=== PATIENT | female | born 1935 | race African-American/Black ===

== ENCOUNTER → 2018-09-02 | Day surgery (SDC) | payer MEDICARE ==
[2018-08-30 11:19] LABS: BASOPHILS % 0.2 % (0.0-1.0); EOSINOPHILS # (AUTO) 0.1 (0.0-0.4); EOSINOPHILS % 3.4 % (0.0-6.0); HEMATOCRIT 35.2 % (34.2-44.1); HEMOGLOBIN 10.7 g/dL (12.0-16.0); LYMPHOCYTES # (AUTO) 1.7 (1.0-3.2); LYMPHOCYTES % 40.8 % (18.0-39.1); MEAN CORPUSCULAR HEMOGLOBIN 27.8 pg (28-32); MEAN CORPUSCULAR HGB CONC 30.4 g/dL (31-35); MEAN CORPUSCULAR VOLUME 91.4 fL (81-99); MONOCYTES # (AUTO) 0.4 (0.2-0.8); MONOCYTES % 9.9 % (4.4-11.3); NEUTROPHILS # (AUTO) 1.9 (2.1-6.9); NEUTROPHILS % 45.7 % (38.7-80.0); PLATELET COUNT 187 x10e3/uL (140-360); RED BLOOD COUNT 3.85 x10e6/uL (3.6-5.1); RED CELL DISTRIBUTION WIDTH 18.7 % (11.7-14.4)
--- NOTE | 2018-08-30 11:58 | Diagnostic Imaging Report ---
EXAM: XR CHEST 2 VIEWS DATE: 08/30/2018 10:48 AM INDICATION: Preoperative for carpal tunnel surgery COMPARISON: None FINDINGS: Lines and Tubes: None Heart and Mediastinum: The heart is not enlarged. Increased right paratracheal soft tissue densities statistically can fluid vascular structures. Lungs and Pleura: No significant pleural effusion, pneumothorax, or focal consolidation. Bones and Soft Tissues: Degenerative changes shoulders. Degenerative changes spine. IMPRESSION: 1. No definite acute findings. 2. Probable confluence of vascular structures account for soft tissue density in the right paratracheal region. Chest x-ray follow-up recommended. Signed by: Dr. Dav Pena MD on 08/30/2018 11:55 AM
[~2018-09-02] MED LIST: AMLODIPINE BESY10 MG PO; BUPIVACAINE HCL 0.5% INJ 30 ML VIAL INJ ONE; CEFAZOLIN SOD 1 GM VIAL ONE; DEXAMETHASONE SOD PHOS INJ 4 MG/ML VIAL ONE; FENTANYL CITRATE/PF 100MCG/2 ML INJ ONE; FERROUS SULFAT325 MG; IBUPROFEN400 MG PO; LEVOTHYROXINE75 MCG PO; LIDOCAINE HCL 2% LOCAL INJ 5 ML SDV VIAL INJ ONE; MUPIROCIN 2% OINT 22 GM TUBE ONE; ONDANSETRON HCL INJ 2 MG/ML VIAL ONE; PROPOFOL IV EMULSION 10 MG/ML 20 ML VIAL ONE; SEVOFLURANE INHAL SOLN 250 ML PEN BTL ONE; SIMVASTATIN20 MG PO
--- OUTSIDE RECORDS SUMMARY | 2018-09-02 05:37 | XMS REPORT | Clinical Summary ---
Author Author MAURICE [facility] Address Unknown Phone Unavailable Care Team Providers Care Revenue Cycle Manager Name Role Phone DebbieAshia rodriguez PCP Unavailable Allergies Comments Active Allergy Reactions Severity Noted Date hallucinations Propoxyphene Other (See 10/17/2014 Comments) Iodine And Iodide Anaphylaxis High 10/17/2014 Containing Products Medications End Date Status Medication Sig Dispensed Refills Start Date Active amLODIPine (NORVASC) 10 Take 10 mg by 0 MG tablet mouth daily. Active loratadine (CLARITIN) 10 Take 10 mg by 0 mg tablet mouth daily. Active simvastatin (ZOCOR) 20 MG Take 20 mg by 0 tablet mouth nightly. Active levothyroxine 125 mcg Cap Take by 0 mouth. Active iron Take 1 tablet 0 [id number] by mouth 150 mg iron-200 mg-250 daily. mcg tablet Active ibuprofen (ADVIL,MOTRIN) Take 400 mg 0 400 MG tablet by mouth every 6 (six) hours as needed for Pain. Active meclizine (ANTIVERT) 25 Take 1 tablet 25 tablet 0 201 mg tablet (25 mg total) 8 by mouth 3 (three) times daily as needed. 09/16/2017 Discontinued azithromycin (ZITHROMAX) Take 250 mg 0 250 MG tablet by mouth daily Take by mouth as directed. . 11/06/2017 ondansetron (ZOFRAN) 4 MG Take 1 tablet 16 tablet 0 201 tablet (4 mg total) 8 by mouth every 6 (six) hours for 7 days. Active Problems Problem Noted Date Enterocolitis 09/11/2017 Encounters Care Team Description Date Type Specialty VuSergio MD Vertigo (Primary Dx) 10/30/2017 Emergency Emergency Medicine 10/30/2017 Orders Only General Internal Medicine Guero Ponce MD Ahmed, Shamoon, MD Enterocolitis (Primary Dx); Vomiting and diarrhea 09/11/2017 [facility] General Internal Medicine - Encounter 09/16/2017 09/11/2017 Orders Only General Internal Medicine after 09/01/2017 Social History Date Tobacco Use Types Packs/Day Years Used Never Smoker Smokeless Tobacco: Never Used Alcohol Use Drinks/Week oz/Week Comments No Sex Assigned at Date Recorded Not on file Industry Job Start Date Occupation Not on file Not on file Not on file Travel End Travel History Travel Start No recent travel history available. Last Filed Vital Signs Time Taken Vital Sign Reading 10/30/2017 11:30 AM [employer] Blood Pressure 186/86 10/30/2017 11:30 AM [employer] Pulse 62 10/30/2017 10:00 AM [employer] Temperature 36.4 C (97.5 F) 10/30/2017 11:30 AM [employer] Respiratory Rate 20 10/30/2017 11:30 AM [employer] Oxygen Saturation 100% - Inhaled Oxygen - Concentration 10/30/2017 10:00 AM [employer] Weight 90.7 kg (200 lb) 09/11/2017 6:58 PM [employer] Height 160 cm (5' 3") 10/30/2017 10:00 AM [employer] Body Mass Index 35.43 Plan of Treatment Not on file Procedures Comments Procedure Name Priority Date/Time Associated Diagnosis ED ECG INTERPRETATION Routine 10/30/2017 1:57 PM [employer] CT BRAIN WITHOUT IV STAT 10/30/2017 CONTRAST 10:38 AM [employer] CBC W/PLT COUNT & AUTO STAT 10/30/2017 DIFFERENTIAL 10:22 AM [employer] CBC W/PLT COUNT & AUTO STAT 10/30/2017 DIFFERENTIAL 10:22 AM [employer] DRIVER BASIC METABOLIC PANEL (7) STAT 10/30/2017 10:22 AM [employer] ECG 12-LEAD Routine 10/30/2017 10:16 AM [employer] DRIVER Procedure Note - Interface, External Ris In - 10/30/2017 9:54 PM [employer] Ventricula r Rate 61 BPM Atrial Rate 61 BPM P-R Interval 148 ms QRS Duration 88 ms Q-T Interval 404 ms QTC Calculatio n(Bazett) 406 ms P Mayview 41 degrees R [place]view 32 degrees T [place]view 63 degrees Normal sinus rhythm Nonspecifi c T wave abnormalit y Abnormal ECG When compared with ECG of 7 03:59, Nonspecifi c T wave abnormalit y no longer evident in Inferior leads Nonspecifi c T wave abnormalit y no longer evident in Anterior leads ECG 12-LEAD STAT 10/30/2017 10:16 AM [employer] CBC W/PLT COUNT & AUTO Routine 09/16/2017 DIFFERENTIAL 5:14 AM [employer] CBC W/PLT COUNT & AUTO Routine 09/16/2017 DIFFERENTIAL 5:14 AM [employer] BASIC METABOLIC PANEL (7) Routine 09/16/2017 5:14 AM [employer] DRIVER (MANUAL DIFFERENTIAL) Routine 09/15/2017 5:22 AM [employer] CBC W/PLT COUNT & AUTO Routine 09/15/2017 DIFFERENTIAL 5:22 AM [employer] DRIVER CBC W/PLT COUNT & AUTO Routine 09/15/2017 DIFFERENTIAL 5:22 AM [employer] DRIVER BASIC METABOLIC PANEL (7) Routine 09/15/2017 5:22 AM [employer] DRIVER (MANUAL DIFFERENTIAL) Routine 09/14/2017 4:46 AM [employer] CBC W/PLT COUNT & AUTO Routine 09/14/2017 DIFFERENTIAL 4:46 AM [employer] DRIVER CBC W/PLT COUNT & AUTO Routine 09/14/2017 DIFFERENTIAL 4:46 AM [employer] DRIVER BASIC METABOLIC PANEL (7) Routine 09/14/2017 4:46 AM [employer]IVER CBC W/PLT COUNT & AUTO Routine 09/13/2017 DIFFERENTIAL 5:39 AM [employer] DRIVER CBC W/PLT COUNT & AUTO Routine 09/13/2017 DIFFERENTIAL 5:39 AM [employer] DRIVER BASIC METABOLIC PANEL (7) Routine 09/13/2017 5:39 AM [employer] DRIVER CBC W/PLT COUNT & AUTO Routine 09/12/2017 DIFFERENTIAL 5:06 AM [employer] CBC W/PLT COUNT & AUTO Routine 09/12/2017 DIFFERENTIAL 5:06 AM [employer] DRIVER BASIC METABOLIC PANEL (7) Routine 09/12/2017 5:06 AM [employer] DRIVER STOOL PATH CHARGE Routine 09/11/2017 11:09 AM [employer] DRIVER URINALYSIS W/ MICROSCOPIC STAT 09/11/2017 11:09 AM [employer] DRIVER SHIGA TOXIN SCREEN Routine 09/11/2017 11:09 AM [employer] DRIVER OVA AND PARASITE STAT 09/11/2017 EXAMINATION 11:09 AM [employer] M[employer] TR[employer] DRIVER CLOSTRIDIUM DIFFICILE STAT 09/11/2017 TOXIN PCR 11:09 AM [employer] M[employer] TR[employer] DRIVER STOOL CULTURE + SHIGA STAT 09/11/2017 TOXIN 11:09 AM [employer] DRIVER ED ECG INTERPRETATION Routine 09/11/2017 7:32 AM [employer] [address] CT ABDOMEN/PELVIS WITHOUT STAT 09/11/2017 IV CONTRAST 6:21 AM [employer] ECG 12-LEAD Routine 09/11/2017 3:59 AM [employer] DRIVER Procedure Note - Interface, External Ris In - 09/11/2017 1:41 PM [employer] Ventricula r Rate 68 BPM Atrial Rate 68 BPM P-R Interval 158 ms QRS Duration 88 ms Q-T Interval 410 ms QTC Calculatio n(Bazett) 435 ms P Mayview 58 degrees R Mayview 41 degrees T [place]view 104 degrees Normal sinus rhythm Nonspecifi c T wave abnormalit y Abnormal ECG When compared with ECG of 7 12:39, Nonspecifi c T wave abnormalit y now evident in Inferior leads Nonspecifi c T wave abnormalit y now evident in Anterior leads ECG 12-LEAD STAT 09/11/2017 3:59 AM [employer]IVER CBC W/PLT COUNT & AUTO STAT 09/11/2017 DIFFERENTIAL 3:29 AM [employer]IVER CBC W/PLT COUNT & AUTO STAT 09/11/2017 DIFFERENTIAL 3:29 AM [employer] DRIVER LIPASE STAT 09/11/2017 3:29 AM [employer] DRIVER AMYLASE STAT 09/11/2017 3:29 AM [employer] DRIVER HEPATIC FUNCTION PANEL STAT 09/11/2017 3:29 AM [employer] DRIVER BASIC METABOLIC PANEL (7) STAT 09/11/2017 3:29 AM [employer] DRIVER after 09/01/2017 Results * ED ECG Interpretation (10/30/2017 1:57 PM [employer]IVER) Only the most recent of 2 results within the time period is included. Narrative Performed At Sergio Sandoval MD 10/30/20171:57 PM ECG/EKG Interpretation Date/Time: 10/30/2017 10:33 AM Performed by: SERGIO SANDOVAL Authorized by: SERGIO SANDOVAL The ECG was interpreted by ED physician. This ECG was not compared with previous ECG(s).The ECG is interpreted as sinus rhythm. Rate is normal rate. Conduction: conduction normal. ST segments normal. T waves abnormal. [place]view is normal. Other findings: no other findings. Clinical Impression: non-specific ECG * CT brain without IV contrast (10/30/2017 10:38 AM [employer] DRIVER) Narrative Performed At FINAL REPORT [facility] CT head without contrast. Comparisons: May 13, 2015 Reason for exam: Dizziness. Discussion: Multiple axial CT images of the head are provided without contrast evaluated in brain and bone windows. Dose modulation, iterative reconstruction, and/or weight based adjustment of the mA/kV was utilized to reduce the radiation dose to as low as reasonably achievable. There is no CT evidence of intracranial hemorrhage, mass-effect, hydrocephalus, shift, or extra-axial collections.Microvascular changes are present. The visualized dural sinus regions, orbital contents, paranasal sinuses, bones and surrounding soft tissues are unremarkable. Impressions: 1. No specific evidence of acute intracranial abnormality. Signed: Teresa Saucedo MD Report Verified Date/Time:10/30/2017 11:23:39 Reading Location: [facility] C0[facility] Neuro Reading Room Procedure Note Interface, External Ris In - 10/30/2017 11:25 AM [employer] TR[employer] DRIVER FINAL REPORT CT head without contrast. Comparisons: May 13, 2015 Reason for exam: Dizziness. Discussion: Multiple axial CT images of the head are provided without contrast evaluated in brain and bone windows. Dose modulation, iterative reconstruction, and/or weight based adjustment of the mA/kV was utilized to reduce the radiation dose to as low as reasonably achievable. There is no CT evidence of intracranial hemorrhage, mass-effect, hydrocephalus, shift, or extra-axial collections. Microvascular changes are present. The visualized dural sinus regions, orbital contents, paranasal sinuses, bones and surrounding soft tissues are unremarkable. Impressions: 1. No specific evidence of acute intracranial abnormality. Signed: Teresa Saucedo MD Report Verified Date/Time: 10/30/2017 11:23:39 Reading Location: [facility] C0[facility] Neuro Reading Room Performing Organization Address City/State/Zipcode Phone Number GE RIS * CBC with platelet count + automated diff (10/30/2017 10:22 AM [employer] DRIVER) Only the most recent of 7 results within the time period is included. WBC 4.2 4.0 - 10.0 10e3/L , [facility] RBC 4.39 4.00 - 5.00 10e6/L , [facility] Hemoglobin 11.2 (L) 12.0 - 15.0 g/dL [facility] Hematocrit 35.1 (L) 36.0 - 45.0 % [facility] MCV 80.1 (L) 82.0 - 99.0 fL [facility] MCH 25.6 (L) 27.0 - 33.0 pg [facility] MCHC 32.0 32.0 - 36.0 g/dL [facility] RDW 18.8 (H) 10.3 - 14.2 % [facility] Platelets 214 150 - 430 10e3/L [facility] MPV 10.0 6.5 - 10.5 fL [facility] % Neutros 58 % [facility] % Lymphs 30 % [facility] % Monos 9 % [facility] % Eos 2 % [facility] % Baso 1 % [facility] # Neutros 2.41 1.80 - 8.00 10e3/L [facility] # Lymphs 1.26 (L) 1.48 - 4.50 10e3/L [facility] # Monos 0.38 0.00 - 1.30 10e3/L [facility] # Eos 0.09 0.00 - 0.50 10e3/L [facility] # Baso 0.02 0.00 - 0.20 10e3/L , [facility] Specimen Blood Performing Organization Address City/State/Zipcode Phone Number MAURICE DOW[address]ING [address] [place] [address] [facility], [facility] * Basic metabolic panel (Na, K+, Cl, CO2, Glu, Ca, BUN, Cr) (10/30/2017 10:22 AM [employer] M[employer] TR[employer] DRIVER) Only the most recent of 7 results within the time period is included. Sodium 147 135 - 148 meq/L [facility] Potassium 4.4 3.6 - 5.5 meq/L [facility] Chloride 103 98 - 106 meq/L [facility] CO2 29 24 - 32 meq/L [facility] BUN 12 10 - 26 mg/dL [facility] Creatinine 0.93 0.50 - 1.20 mg/dL [facility] Glucose 125 (H) 70 - 110 mg/dL [facility] Calcium 9.0 8.5 - 10.5 mg/dL [facility] EGFR 70Comment: ESTIMATED GFR IS mL/min/1.73 sq m [facility] NOT ACCURATE CREATININE [facility] CLEARANCE IN [facility] GLOMERULAR FILTRATION RATE. EMERGENCY CENTER, ESTIMATED GFR IS NOT [facility] APPLICABLE FOR DIALYSIS PATIENTS. Specimen Blood Performing Organization Address City/State/Zipcode Phone Number [facility] [address] [place] [address] [facility] * ECG 12 lead (10/30/2017 10:16 AM [employer] M[employer] TR[employer] DRIVER) Only the most recent of 2 results within the time period is included. Narrative Performed At Ventricular Rate 61 BPM GE MUSE Atrial Rate 61 BPM P-R Interval 148 ms QRS Duration 88 ms Q-T Interval 404 ms QTC Calculation(Bazett) 406 ms P Mayview 41 degrees R Mayview 32 degrees T Mayview 63 degrees Normal sinus rhythm Normal ECG When compared with ECG of 11-SEP-2017 03:59, Nonspecific T wave abnormality no longer evident in Inferior leads Nonspecific T wave abnormality no longer evident in Anterior leads Confirmed by MD ZHENG YOCHAI ([id number]) on 10/31/2017 2:39:06 PM Procedure Note Interface, External Ris In - 10/31/2017 2:39 PM [employer] DRIVER Ventricular Rate 61 BPM Atrial Rate 61 BPM P-R Interval 148 ms QRS Duration 88 ms Q-T Interval 404 ms QTC Calculation(Bazett) 406 ms P Mayview 41 degrees R Mayview 32 degrees T Mayview 63 degrees Normal sinus rhythm Normal ECG When compared with ECG of 11-SEP-2017 03:59, Nonspecific T wave abnormality no longer evident in Inferior leads Nonspecific T wave abnormality no longer evident in Anterior leads Confirmed by MD ZHENG YOCHAI ([id number]) on 10/31/2017 2:39:06 PM Performing Organization Address City/[facility] Phone Number GE MUSE * Manual Differential (09/15/2017 5:22 AM [employer] M[employer] TR[employer] DRIVER) Only the most recent of 2 results within the time period is included. Total Counted [facility] WBC Morphology Normal [facility] RBC Morphology Normal [facility] Large Platelet Present [facility] Specimen Blood Performing Organization Address [facility] Phone Number [address] [address] [facility] * STOOL PATH CHARGE (09/11/2017 11:09 AM READ[employer] M[employer] TRUCK DRIVER) Pathogen exam charged Done [facility] Specimen Stool - Stool Performing Organization Address [facility] Phone Number [address] [address] [facility] * Shiga Toxin Screen (09/11/2017 11:09 AM READ[employer] M[employer] TR[employer] DRIVER) Shiga toxin 1 Not detected Not detected [facility] Shiga toxin 2 Not detected Not detected [facility] Specimen Stool - Stool Performing Organization Address [facility] Phone Number [address] [address] [phone] [place] [address] * Clostridium difficile Toxin PCR (09/11/2017 11:09 AM READ[employer] M[employer] TRUCK DRIVER) C.Diff Toxin, PCR Not Detected Not Detected [facility] Specimen Stool - Urine, Clean Catch Narrative Performed At This qualitative real-time polymerase chain reaction assay detects the tcdB [facility] gene, encoded on the C.difficile pathogenicity locus (PaLoc).The product of [facility] tcdB, toxin B, is a cytotoxin essential for causing C.difficile-associated disease (CDAD) and is found in virtually all toxigenic C.difficile. This assay is performed for patients suspected of having either community-acquired or nosocomial CDAD.Accordingly, only symptomatic patients should be tested and formed stools will be rejected unless ileus is present (i.e., specified when ordering).Patients may be colonized with toxigenic C.difficile strains not causing active disease; therefore, clinical correlation is needed when deciding how to manage patients with a positive test result. The assay has not been validated as a test of cure as amplifiable nucleic acid may persist after effective treatment; therefore, follow-up testing of a positive result is not recommended. Performing Organization Address City/State/Zipcode Phone Number [address] * Ova and Parasite Examination (09/11/2017 11:09 AM READ[employer] M[employer] TRUCK DRIVER) Specimen Stool Narrative Performed At [facility] See scanned results. [facility] Performing Organization Address City/State/Zipcode Phone Number [address] * Urinalysis w/ Microscopic (09/11/2017 11:09 AM READY M[employer] TRUCK DRIVER) Color, UA Yellow [facility] Clarity, UA Clear [facility] Specific Elsa, UA 1.012 1.001 - 1.035 [facility] pH, UA 5.5 5.0 - 8.0 [facility] Protein, UA Negative Negative [facility] Glucose, UA Negative Negative [facility] Ketones, UA Negative Negative [facility] Bilirubin, UA Negative Negative [facility] Blood, UA Negative Negative [facility] Nitrite, UA Negative Negative [facility] Leukocytes, UA Negative Negative [facility] Urobilinogen, UA 0.2 0.2 - 1.0 mg/dL [facility] RBC, UA <1 /HPF [facility] WBC, UA 1 /HPF [facility] Bacteria, UA Rare [facility] Mucus Rare [facility] Squam Epithel, UA <1 /HPF [facility] Casts 1 /LPF [facility] Specimen Source Urine, Clean Catch [facility] Specimen Urine - Urine, Clean Catch Performing Organization Address City/State/Zipcode Phone Number [facility] [address] [place] [address] [phone] [place] [address] * Stool culture + Shiga toxin+Salmonella+Campylobacter (09/11/2017 11:09 AM READY M[employer] TRUCK DRIVER) Result No Salmonella, Shigella or [facility] Campylobacter isolated [facility] Specimen Stool - Stool Performing Organization Address City/[facility] Phone Number [facility] [address] [place] [address] [phone] [place] [address] * CT abdomen pelvis without contrast (09/11/2017 6:21 AM READY M[employer] TRUCK DRIVER) Narrative Performed At FINAL REPORT [facility] CT, ABDOMEN \\T\\ PELVIS, WITHOUT IV CONTRAST INDICATION: Abdominal pain, unspecified ABDOMINAL PAIN COMPARISON: February 16, 2013 TECHNIQUE: CT of the abdomen and pelvis WITHOUT intravenous contrast. DOSE REDUCTION: Dose modulation, iterative reconstruction, and/or weight-based adjustment of the mA/kV was utilized to reduce the radiation dose to as low as reasonably achievable. FINDINGS: NOTE:Absence of intravenous contrast decreases sensitivity for focal lesions and vascular pathology. Lower thorax: Unremarkable Liver: No parenchymal abnormality. Gallbladder and biliary tree: No ductal dilation or stones. Pancreas: No acute findings. Spleen: No acute findings Adrenal Glands: No acute findings. Kidneys and ureters: Left pelviectasis. No obstructing stone. Bladder and reproductive organs: Unremarkable. Stomach and Duodenum: Small sliding hiatal hernia. Small and large intestine: Normal calibers. Distal colonic diverticular disease. No associated inflammatory signs. Fluid content throughout the small and large bowel. There is no pneumatosis. Appendix: The appendix is not identified. No pericecal inflammatory changes are present. Major vascular structures: Normal aortic caliber. Calcific atherosclerosis extending into the major branches. Peritoneum and retroperitoneum: No free air, fluid or adenopathy. Skeleton: No acute bony abnormality. Additional findings: None. IMPRESSION: Limited noncontrast evaluation revealing no bowel obstruction. Fluid content throughout the large and small bowel may reflect infectious/inflammatory enterocolitis. No pneumatosis. Signed: JR Powers Robert MD Report Verified Date/Time:09/11/2017 06:26:10 Reading Location: [facility] C013Y CT Body Reading Room Procedure Note Interface, External Ris In - 09/11/2017 6:28 AM READY M[employer] TRUCK DRIVER FINAL REPORT CT, ABDOMEN \\T\\ PELVIS, WITHOUT IV CONTRAST INDICATION: Abdominal pain, unspecified ABDOMINAL PAIN COMPARISON: February 16, 2013 TECHNIQUE: CT of the abdomen and pelvis WITHOUT intravenous contrast. DOSE REDUCTION: Dose modulation, iterative reconstruction, and/or weight-based adjustment of the mA/kV was utilized to reduce the radiation dose to as low as reasonably achievable. FINDINGS: NOTE: Absence of intravenous contrast decreases sensitivity for focal lesions and vascular pathology. Lower thorax: Unremarkable Liver: No parenchymal abnormality. Gallbladder and biliary tree: No ductal dilation or stones. Pancreas: No acute findings. Spleen: No acute findings Adrenal Glands: No acute findings. Kidneys and ureters: Left pelviectasis. No obstructing stone. Bladder and reproductive organs: Unremarkable. Stomach and Duodenum: Small sliding hiatal hernia. Small and large intestine: Normal calibers. Distal colonic diverticular disease. No associated inflammatory signs. Fluid content throughout the small and large bowel. There is no pneumatosis. Appendix: The appendix is not identified. No pericecal inflammatory changes are present. Major vascular structures: Normal aortic caliber. Calcific atherosclerosis extending into the major branches. Peritoneum and retroperitoneum: No free air, fluid or adenopathy. Skeleton: No acute bony abnormality. Additional findings: None. IMPRESSION: Limited noncontrast evaluation revealing no bowel obstruction. Fluid content throughout the large and small bowel may reflect infectious/inflammatory enterocolitis. No pneumatosis. Signed: JR Gio, Gina GRIGGS Report Verified Date/Time: 09/11/2017 06:26:10 Reading Location: [facility] B1 C[address] Body Reading Room Performing Organization Address City/[facility]/Zipcode Phone Number RIS * Lipase (09/11/2017 3:29 AM READ[employer] M[employer] TRUCK DRIVER) Lipase 13 8 - 78 U/L [facility] Specimen Blood Performing Organization Address [facility] Phone Number [address] * Amylase (09/11/2017 3:29 AM READ[employer] M[employer] TRUCK DRIVER) Amylase 137 (H) 25 - 125 U/L [facility] Specimen Blood Performing Organization Address [facility] Phone Number [address] * Hepatic function panel (09/11/2017 3:29 AM READY M[employer] TRUCK DRIVER) Protein, Total 8.1 6.0 - 8.3 gm/dL [facility] Albumin 3.6 3.5 - 5.0 g/dL [facility] Total Bilirubin 0.4 0.2 - 1.2 mg/dL [facility] Bilirubin, Direct 0.2 0.1 - 0.5 mg/dL [facility] Alkaline Phosphatase 94 40 - 150 U/L [facility] AST 17 5 - 34 U/L [facility] ALT 10 6 - 55 U/L [facility] Specimen Blood Performing Organization Address City/State/Zipcode Phone Number [facility] [address] [place] [address] [facility] after 09/01/2017 Insurance Payer Benefit Subscriber ID Type Phone Address Plan / Group HUMANA - MEDICARE MGD HUMANA xxxxxxxxx [facility] MEDICARE Contracted ADV MCR SUPPLEMENT/INDIVIDUAL AARP/UNITE xxxxxxxxxxx [employer] HEALTHCARE Advance Directives For more information, please contact: [facility] [address] [place] [address] Date Inactivated Comments Code Status Date Activated 09/16/2017 6:40 PM Full Code 09/11/2017 9:28 AM This code status was determined by: Patient
--- OUTSIDE RECORDS SUMMARY | 2018-09-02 05:38 | XMS REPORT ---
[facility] Address Unknown Phone Unavailable Care Team Providers Care Demographer Name Role Phone APRIL DANG Unavailable Unavailable Nancy SANDOVAL Unavailable [facility]available [facility] Unavailable Unavailable ANGELO GARNER Unavailable Unavailable Problems This patient has no known problems. Allergies, Adverse Reactions, Alerts This patient has no known allergies or adverse reactions. Medications This patient has no known medications. Results Test Description Test Time Test Comments Text Results Atomic Results Result Comments CHEST 2 VIEWS 2018-08-30 11:54:00 [place] [address] Patient Name: CHEYENNE RAMOS MR #: [id number] : 1935 Age/Sex: 83/F Req #: [id number] Adm Physician: Ordered by: APRIL DANG MD Report #: [id number] Location: OR Room/Bed: Procedure: [id number] DX/CHEST 2 VIEWS Exam Date: 08/30/18 Exam Time: 1133 REPORT STATUS: Signed EXAM: XR CHEST 2 VIEWS DATE: 08/30/2018 10:48 AM IN DICATION: Preoperative for carpal tunnel surgery COMPARISON: None FINDINGS: Lines and Tubes: None Heart and Mediastinum: The heart is not enlarged. Increased right paratracheal soft tissue densities statistically can fluid vascular structures. Lungs and Pleura: No significant pleural effusion, pneumothorax, or focal consolidation. Bones and Soft Tissues: Degenerative changes shoulders. Degenerative changes spine. IMPRESSION: 1. No definite acute findings. 2. Probable confluence of vascular structures account for soft tissue density in the right paratracheal region. Chest x-ray follow-up recommended. Signed by: Dr. Dav Pena MD on 08/30/2018 11:55 AM Dictated By: DAV PENA MD 1155 Transcribed By: JAREN on 08/30/18 1155 COPY TO: APRIL DANG MD CT, BRAIN, WITHOUT CONTRAST 2017-10-30 11:23:[address] head without contrast. Comparisons: [...] evidence of acute intracranial abnormality. Signed: Teresa Bro Verified Da te/Time: 10/30/2017 11:23:39 Reading Location: [address] Neuro Reading Room W/PLT COUNT & AUTO DIFFERENTIAL 2017-10-30 10:55:00 WHITE BLOOD CELL COUNT (BEAKER) (test dgaq=406) 4.2 10e3/ L 4.0-10.0 RED BLOOD CELL COUNT (BEAKER) (test hana=761) 4.39 10e6/ L 4.00-5.00 HEMOGLOBIN (BEAKER) (test rvmn=803) 11.2 g/dL 12.0-15.0 HEMATOCRIT (BEAKER) (test hkpf=469) 35.1 % 36.0-45.0 MEAN CORPUSCULAR VOLUME (BEAKER) (test czbv=009) 80.1 fL 82.0-99.0 MEAN CORPUSCULAR HEMOGLOBIN (BEAKER) (test vvlg=139) 25.6 pg 27.0-33.0 MEAN CORPUSCULAR HEMOGLOBIN CONC (BEAKER) (test pejg=526) 32.0 g/dL 32.0-36.0 RED CELL DISTRIBUTION WIDTH (BEAKER) (test gukq=840) 18.8 % 10.3-14.2 PLATELET COUNT (BEAKER) (test rdnb=160) 214 10e3/ L 150-430 MEAN PLATELET VOLUME (BEAKER) (test gdcf=230) 10.0 fL 6.5-10.5 NEUTROPHILS RELATIVE PERCENT (BEAKER) (test fjps=659) 58 % LYMPHOCYTES RELATIVE PERCENT (BEAKER) (test uqwv=937) 30 % MONOCYTES RELATIVE PERCENT (BEAKER) (test uhbq=915) 9 % EOSINOPHILS RELATIVE PERCENT (BEAKER) (test diwr=337) 2 % BASOPHILS RELATIVE PERCENT (BEAKER) (test iper=750) 1 % NEUTROPHILS ABSOLUTE COUNT (BEAKER) (test fpdw=377) 2.41 10e3/ L 1.80-8.00 LYMPHOCYTES ABSOLUTE COUNT (BEAKER) (test xzme=716) 1.26 10e3/ L 1.48-4.50 MONOCYTES ABSOLUTE COUNT (BEAKER) (test cgxc=768) 0.38 10e3/ L 0.00-1.30 EOSINOPHILS ABSOLUTE COUNT (BEAKER) (test iypi=893) 0.09 10e3/ L 0.00-0.50 BASOPHILS ABSOLUTE COUNT (BEAKER) (test awie=732) 0.02 10e3/ L 0.00-0.20 BASIC METABOLIC [id number] 10:46:00* Test Item Value Reference Range Comments SODIUM (BEAKER) (test rsub=473) 147 meq/L 135-148 POTASSIUM (BEAKER) (test zdsi=385) 4.4 meq/L 3.6-5.5 CHLORIDE (BEAKER) (test fujm=898) 103 meq/L 98-106 CO2 (BEAKER) (test vhlf=483) 29 meq/L 24-32 BLOOD UREA NITROGEN (BEAKER) (test gdbq=470) 12 mg/dL 10-26 CREATININE (BEAKER) (test bbki=857) 0.93 mg/dL 0.50-1.20 GLUCOSE RANDOM (BEAKER) (test bjzb=546) 125 mg/dL 70-110 CALCIUM (BEAKER) (test labg=931) 9.0 mg/dL 8.5-10.5 EGFR (BEAKER) (test oxgq=4833) 70 mL/min/1.73 sq m ESTIMATED GFR IS NOT ACCURATE CREATININE CLEARANCE IN PREDICTING GLOMERULAR FILTRATION RATE. ESTIMATED GFR IS NOT APPLICABLE FOR DIALYSIS PATIENTS. BASIC METABOLIC [id number] 07:28:00* Test Item Value Reference Range Comments SODIUM (BEAKER) (test jaaw=909) 145 meq/L 136-145 POTASSIUM (BEAKER) (test xktk=341) 3.2 meq/L 3.5-5.1 CHLORIDE (BEAKER) (test zlnd=680) 110 meq/L 98-107 CO2 (BEAKER) (test vdgq=458) 25 meq/L 22-29 BLOOD UREA NITROGEN (BEAKER) (test hkgz=184) 4 mg/dL 7-21 CREATININE (BEAKER) (test enjs=959) 0.83 mg/dL 0.57-1.25 GLUCOSE RANDOM (BEAKER) (test kzbw=661) 95 mg/dL 70-105 CALCIUM (BEAKER) (test egml=000) 8.3 mg/dL 8.4-10.2 EGFR (BEAKER) (test nmfi=5221) 80 mL/min/1.73 sq m ESTIMATED GFR IS NOT ACCURATE CREATININE CLEARANCE IN PREDICTING GLOMERULAR FILTRATION RATE. ESTIMATED GFR IS NOT APPLICABLE FOR DIALYSIS PATIENTS. CBC W/PLT COUNT & AUTO [id number] 06:17:00* Test Item Value Reference Range Comments WHITE BLOOD CELL COUNT (BEAKER) (test cdcp=150) 4.9 K/ L 3.5-10.5 RED BLOOD CELL COUNT (BEAKER) (test pjfy=498) 3.70 M/ L 3.93-5.22 HEMOGLOBIN (BEAKER) (test bhyx=372) 9.5 GM/DL 11.2-15.7 HEMATOCRIT (BEAKER) (test fwnz=108) 31.3 % 34.1-44.9 MEAN CORPUSCULAR VOLUME (BEAKER) (test pcbj=508) 84.6 fL 79.4-94.8 MEAN CORPUSCULAR HEMOGLOBIN (BEAKER) (test zyqu=032) 25.7 pg 25.6-32.2 MEAN CORPUSCULAR HEMOGLOBIN CONC (BEAKER) (test wknh=749) 30.4 GM/DL 32.2-35.5 RED CELL DISTRIBUTION WIDTH (BEAKER) (test gfph=530) 18.4 % 11.7-14.4 PLATELET COUNT (BEAKER) (test ebrl=735) 194 K/CU MM 150-450 MEAN PLATELET VOLUME (BEAKER) (test kmqv=252) 11.4 fL 9.4-12.3 NUCLEATED RED BLOOD CELLS (BEAKER) (test awci=758) 0 /100 WBC 0-0 NEUTROPHILS RELATIVE PERCENT (BEAKER) (test ueab=451) 48 % LYMPHOCYTES RELATIVE PERCENT (BEAKER) (test gzag=336) 36 % MONOCYTES RELATIVE PERCENT (BEAKER) (test ckcu=396) 13 % EOSINOPHILS RELATIVE PERCENT (BEAKER) (test oicq=270) 3 % BASOPHILS RELATIVE PERCENT (BEAKER) (test jgwk=894) 0 % NEUTROPHILS ABSOLUTE COUNT (BEAKER) (test iphb=126) 2.37 K/ L 1.56-6.13 LYMPHOCYTES ABSOLUTE COUNT (BEAKER) (test vkzt=819) 1.76 K/ L 1.18-3.74 MONOCYTES ABSOLUTE COUNT (BEAKER) (test ohox=454) 0.61 K/ L 0.24-0.36 EOSINOPHILS ABSOLUTE COUNT (BEAKER) (test qbch=270) 0.13 K/ L 0.04-0.36 BASOPHILS ABSOLUTE COUNT (BEAKER) (test rcsn=158) 0.01 K/ L 0.01-0.08 IMMATURE GRANULOCYTES-RELATIVE PERCENT (BEAKER) (test mmbk=0765) 0 % 0-1 CBC W/PLT COUNT & AUTO [id number] 09:27:00* Test Item Value Reference Range Comments WHITE BLOOD CELL COUNT (BEAKER) (test mxop=886) 5.6 K/ L 3.5-10.5 RED BLOOD CELL COUNT (BEAKER) (test cnfz=209) 3.69 M/ L 3.93-5.22 HEMOGLOBIN (BEAKER) (test zzjo=017) 9.5 GM/DL 11.2-15.7 HEMATOCRIT (BEAKER) (test xddx=249) 31.5 % 34.1-44.9 MEAN CORPUSCULAR VOLUME (BEAKER) (test chlo=999) 85.4 fL 79.4-94.8 MEAN CORPUSCULAR HEMOGLOBIN (BEAKER) (test oslm=786) 25.7 pg 25.6-32.2 MEAN CORPUSCULAR HEMOGLOBIN CONC (BEAKER) (test cgki=898) 30.2 GM/DL 32.2-35.5 RED CELL DISTRIBUTION WIDTH (BEAKER) (test ilbi=440) 18.2 % 11.7-14.4 PLATELET COUNT (BEAKER) (test jypw=539) 188 K/CU MM 150-450 MEAN PLATELET VOLUME (BEAKER) (test tjot=008) 12.1 fL 9.4-12.3 NUCLEATED RED BLOOD CELLS (BEAKER) (test zexu=118) 0 /100 WBC 0-0 NEUTROPHILS RELATIVE PERCENT (BEAKER) (test uwvr=850) 50 % LYMPHOCYTES RELATIVE PERCENT (BEAKER) (test mxhu=731) 36 % MONOCYTES RELATIVE PERCENT (BEAKER) (test tfvk=295) 12 % EOSINOPHILS RELATIVE PERCENT (BEAKER) (test opkm=225) 3 % BASOPHILS RELATIVE PERCENT (BEAKER) (test wmkg=854) 0 % NEUTROPHILS ABSOLUTE COUNT (BEAKER) (test vcsi=453) 2.79 K/ L 1.56-6.13 LYMPHOCYTES ABSOLUTE COUNT (BEAKER) (test bwsb=272) 1.99 K/ L 1.18-3.74 MONOCYTES ABSOLUTE COUNT (BEAKER) (test upra=969) 0.64 K/ L 0.24-0.36 EOSINOPHILS ABSOLUTE COUNT (BEAKER) (test kepo=146) 0.14 K/ L 0.04-0.36 BASOPHILS ABSOLUTE COUNT (BEAKER) (test jmun=318) 0.00 K/ L 0.01-0.08 IMMATURE GRANULOCYTES-RELATIVE PERCENT (BEAKER) (test ygxe=9026) 0 % 0-1 (MANUAL DIFFERENTIAL)2017-09-15 09:27:00* Test Item Value Reference Range Comments TOTAL COUNTED (BEAKER) (test tawa=6690) WBC MORPHOLOGY (BEAKER) (test jewl=026) Normal RBC MORPHOLOGY (BEAKER) (test peca=673) Normal LARGE PLT(BEAKER) (test cypn=7063) Present BASIC METABOLIC [id number] 06:40:00* Test Item Value Reference Range Comments SODIUM (BEAKER) (test hlyp=855) 143 meq/L 136-145 POTASSIUM (BEAKER) (test nolu=746) 3.2 meq/L 3.5-5.1 CHLORIDE (BEAKER) (test vxhr=491) 109 meq/L 98-107 CO2 (BEAKER) (test wcez=125) 25 meq/L 22-29 BLOOD UREA NITROGEN (BEAKER) (test vbku=480) 5 mg/dL 7-21 CREATININE (BEAKER) (test vyja=794) 0.89 mg/dL 0.57-1.25 GLUCOSE RANDOM (BEAKER) (test lrwy=441) 98 mg/dL 70-105 CALCIUM (BEAKER) (test kcbv=046) 8.4 mg/dL 8.4-10.2 EGFR (BEAKER) (test orbw=2904) 73 mL/min/1.73 sq m ESTIMATED GFR IS NOT ACCURATE CREATININE CLEARANCE IN PREDICTING GLOMERULAR FILTRATION RATE. ESTIMATED GFR IS NOT APPLICABLE FOR DIALYSIS PATIENTS. CBC W/PLT COUNT & AUTO [id number] 08:57:00* Test Item Value Reference Range Comments WHITE BLOOD CELL COUNT (BEAKER) (test nevj=622) 4.9 K/ L 3.5-10.5 RED BLOOD CELL COUNT (BEAKER) (test zowp=663) 3.63 M/ L 3.93-5.22 HEMOGLOBIN (BEAKER) (test dzqu=253) 9.4 GM/DL 11.2-15.7 HEMATOCRIT (BEAKER) (test tfwg=852) 31.7 % 34.1-44.9 MEAN CORPUSCULAR VOLUME (BEAKER) (test dmgx=271) 87.3 fL 79.4-94.8 MEAN CORPUSCULAR HEMOGLOBIN (BEAKER) (test ucdo=701) 25.9 pg 25.6-32.2 MEAN CORPUSCULAR HEMOGLOBIN CONC (BEAKER) (test zfoe=643) 29.7 GM/DL 32.2-35.5 RED CELL DISTRIBUTION WIDTH (BEAKER) (test snsv=579) 18.7 % 11.7-14.4 PLATELET COUNT (BEAKER) (test kuct=863) 169 K/CU MM 150-450 MEAN PLATELET VOLUME (BEAKER) (test hwlj=737) 12.1 fL 9.4-12.3 NUCLEATED RED BLOOD CELLS (BEAKER) (test ggho=844) 0 /100 WBC 0-0 NEUTROPHILS RELATIVE PERCENT (BEAKER) (test dsri=230) 50 % LYMPHOCYTES RELATIVE PERCENT (BEAKER) (test izqt=542) 36 % MONOCYTES RELATIVE PERCENT (BEAKER) (test pwej=765) 12 % EOSINOPHILS RELATIVE PERCENT (BEAKER) (test gmka=070) 3 % BASOPHILS RELATIVE PERCENT (BEAKER) (test jgyd=696) 0 % NEUTROPHILS ABSOLUTE COUNT (BEAKER) (test zpti=323) 2.44 K/ L 1.56-6.13 LYMPHOCYTES ABSOLUTE COUNT (BEAKER) (test qksl=871) 1.76 K/ L 1.18-3.74 MONOCYTES ABSOLUTE COUNT (BEAKER) (test swaw=001) 0.57 K/ L 0.24-0.36 EOSINOPHILS ABSOLUTE COUNT (BEAKER) (test vxtc=527) 0.15 K/ L 0.04-0.36 BASOPHILS ABSOLUTE COUNT (BEAKER) (test ynua=528) 0.00 K/ L 0.01-0.08 IMMATURE GRANULOCYTES-RELATIVE PERCENT (BEAKER) (test dgjo=4458) 0 % 0-1 (MANUAL DIFFERENTIAL)2017-09-14 08:57:00* Test Item Value Reference Range Comments TOTAL COUNTED (BEAKER) (test swgd=9024) WBC MORPHOLOGY (BEAKER) (test asyp=697) Normal PLT MORPHOLOGY (BEAKER) (test monh=913) Normal RBC MORPHOLOGY (BEAKER) (test oycd=567) Normal BASIC METABOLIC [id number] 07:49:00* Test Item Value Reference Range Comments SODIUM (BEAKER) (test nkxg=704) 142 meq/L 136-145 POTASSIUM (BEAKER) (test xddi=008) 3.5 meq/L 3.5-5.1 CHLORIDE (BEAKER) (test hbpg=189) 111 meq/L 98-107 CO2 (BEAKER) (test hzeo=981) 22 meq/L 22-29 BLOOD UREA NITROGEN (BEAKER) (test iiea=764) 5 mg/dL 7-21 CREATININE (BEAKER) (test cuko=850) 0.92 mg/dL 0.57-1.25 GLUCOSE RANDOM (BEAKER) (test kgik=472) 87 mg/dL 70-105 CALCIUM (BEAKER) (test pxdt=104) 8.3 mg/dL 8.4-10.2 EGFR (BEAKER) (test xpgt=5609) 71 mL/min/1.73 sq m ESTIMATED GFR IS NOT ACCURATE CREATININE CLEARANCE IN PREDICTING GLOMERULAR FILTRATION RATE. ESTIMATED GFR IS NOT APPLICABLE FOR DIALYSIS PATIENTS. STOOL CULTURE + SHIGA [id number] 12:49:00* Test Item Value Reference Range Comments CULTURE (BEAKER) (test arly=8097) No Salmonella, Shigella or Campylobacter isolated BASIC METABOLIC [id number] 07:37:00* Test Item Value Reference Range Comments SODIUM (BEAKER) (test mkoh=686) 143 meq/L 136-145 POTASSIUM (BEAKER) (test tnnn=390) 3.5 meq/L 3.5-5.1 CHLORIDE (BEAKER) (test aotj=415) 114 meq/L 98-107 CO2 (BEAKER) (test byby=933) 22 meq/L 22-29 BLOOD UREA NITROGEN (BEAKER) (test lvqo=118) 10 mg/dL 7-21 CREATININE (BEAKER) (test yryz=792) 1.01 mg/dL 0.57-1.25 GLUCOSE RANDOM (BEAKER) (test yxoo=608) 82 mg/dL 70-105 CALCIUM (BEAKER) (test jdbi=468) 8.5 mg/dL 8.4-10.2 EGFR (BEAKER) (test jsni=1617) 63 mL/min/1.73 sq m ESTIMATED GFR IS NOT ACCURATE CREATININE CLEARANCE IN PREDICTING GLOMERULAR FILTRATION RATE. ESTIMATED GFR IS NOT APPLICABLE FOR DIALYSIS PATIENTS. CBC W/PLT COUNT & AUTO [id number] 07:34:00* Test Item Value Reference Range Comments WHITE BLOOD CELL COUNT (BEAKER) (test mgxg=028) 4.4 K/ L 3.5-10.5 RED BLOOD CELL COUNT (BEAKER) (test tpfd=542) 3.95 M/ L 3.93-5.22 HEMOGLOBIN (BEAKER) (test iwod=861) 10.1 GM/DL 11.2-15.7 HEMATOCRIT (BEAKER) (test wfpd=225) 34.8 % 34.1-44.9 MEAN CORPUSCULAR VOLUME (BEAKER) (test ahrt=147) 88.1 fL 79.4-94.8 MEAN CORPUSCULAR HEMOGLOBIN (BEAKER) (test cgpg=137) 25.6 pg 25.6-32.2 MEAN CORPUSCULAR HEMOGLOBIN CONC (BEAKER) (test wcto=484) 29.0 GM/DL 32.2-35.5 RED CELL DISTRIBUTION WIDTH (BEAKER) (test atpa=342) 18.8 % 11.7-14.4 PLATELET COUNT (BEAKER) (test rwjw=523) 171 K/CU MM 150-450 MEAN PLATELET VOLUME (BEAKER) (test ijpo=493) 11.8 fL 9.4-12.3 NUCLEATED RED BLOOD CELLS (BEAKER) (test dnwi=787) 0 /100 WBC 0-0 NEUTROPHILS RELATIVE PERCENT (BEAKER) (test oyqf=781) 48 % LYMPHOCYTES RELATIVE PERCENT (BEAKER) (test cvzw=771) 34 % MONOCYTES RELATIVE PERCENT (BEAKER) (test pnqr=980) 16 % EOSINOPHILS RELATIVE PERCENT (BEAKER) (test hnsj=160) 2 % BASOPHILS RELATIVE PERCENT (BEAKER) (test nlvl=282) 0 % NEUTROPHILS ABSOLUTE COUNT (BEAKER) (test szmf=708) 2.10 K/ L 1.56-6.13 LYMPHOCYTES ABSOLUTE COUNT (BEAKER) (test laei=157) 1.49 K/ L 1.18-3.74 MONOCYTES ABSOLUTE COUNT (BEAKER) (test bare=592) 0.72 K/ L 0.24-0.36 EOSINOPHILS ABSOLUTE COUNT (BEAKER) (test mkrc=067) 0.09 K/ L 0.04-0.36 BASOPHILS ABSOLUTE COUNT (BEAKER) (test ysuo=473) 0.00 K/ L 0.01-0.08 IMMATURE GRANULOCYTES-RELATIVE PERCENT (BEAKER) (test ilfu=4157) 0 % 0-1 SHIGA TOXIN [id number] 14:39:00* Test Item Value Reference Range Comments SHIGA TOXIN 1 (BEAKER) (test unwq=4605) Not detected Not detected SHIGA TOXIN 2 (BEAKER) (test qszi=9360) Not detected Not detected STOOL PATH [id number] 11:06:00* Test Item Value Reference Range Comments PATHOGEN EXAM CHARGED (BEAKER) (test bwhm=7750) Done BASIC METABOLIC [id number] 07:33:00* Test Item Value Reference Range Comments SODIUM (BEAKER) (test bogl=794) 142 meq/L 136-145 POTASSIUM (BEAKER) (test rzpq=943) 3.9 meq/L 3.5-5.1 CHLORIDE (BEAKER) (test mwsf=736) 110 meq/L 98-107 CO2 (BEAKER) (test ehsm=395) 24 meq/L 22-29 BLOOD UREA NITROGEN (BEAKER) (test gioa=610) 13 mg/dL 7-21 CREATININE (BEAKER) (test jtoq=572) 1.08 mg/dL 0.57-1.25 GLUCOSE RANDOM (BEAKER) (test gmnz=617) 85 mg/dL 70-105 CALCIUM (BEAKER) (test ztqy=505) 8.5 mg/dL 8.4-10.2 EGFR (BEAKER) (test enaw=8404) 59 mL/min/1.73 sq m ESTIMATED GFR IS NOT ACCURATE CREATININE CLEARANCE IN PREDICTING GLOMERULAR FILTRATION RATE. ESTIMATED GFR IS NOT APPLICABLE FOR DIALYSIS PATIENTS. CBC W/PLT COUNT & AUTO [id number] 07:07:00* Test Item Value Reference Range Comments WHITE BLOOD CELL COUNT (BEAKER) (test xvoz=448) 5.4 K/ L 3.5-10.5 RED BLOOD CELL COUNT (BEAKER) (test wtih=258) 4.05 M/ L 3.93-5.22 HEMOGLOBIN (BEAKER) (test anmx=797) 10.3 GM/DL 11.2-15.7 HEMATOCRIT (BEAKER) (test pzgv=498) 34.8 % 34.1-44.9 MEAN CORPUSCULAR VOLUME (BEAKER) (test ekba=133) 85.9 fL 79.4-94.8 MEAN CORPUSCULAR HEMOGLOBIN (BEAKER) (test razx=036) 25.4 pg 25.6-32.2 MEAN CORPUSCULAR HEMOGLOBIN CONC (BEAKER) (test agmc=242) 29.6 GM/DL 32.2-35.5 RED CELL DISTRIBUTION WIDTH (BEAKER) (test qgyt=792) 18.7 % 11.7-14.4 PLATELET COUNT (BEAKER) (test usvx=428) 180 K/CU MM 150-450 MEAN PLATELET VOLUME (BEAKER) (test jkfa=001) 11.9 fL 9.4-12.3 NUCLEATED RED BLOOD CELLS (BEAKER) (test ubao=810) 0 /100 WBC 0-0 NEUTROPHILS RELATIVE PERCENT (BEAKER) (test iyek=619) 69 % LYMPHOCYTES RELATIVE PERCENT (BEAKER) (test vxgn=211) 19 % MONOCYTES RELATIVE PERCENT (BEAKER) (test tdtq=378) 11 % EOSINOPHILS RELATIVE PERCENT (BEAKER) (test ltvg=192) 0 % BASOPHILS RELATIVE PERCENT (BEAKER) (test aqfo=709) 0 % NEUTROPHILS ABSOLUTE COUNT (BEAKER) (test nddl=325) 3.73 K/ L 1.56-6.13 LYMPHOCYTES ABSOLUTE COUNT (BEAKER) (test kykz=336) 1.05 K/ L 1.18-3.74 MONOCYTES ABSOLUTE COUNT (BEAKER) (test vunh=253) 0.62 K/ L 0.24-0.36 EOSINOPHILS ABSOLUTE COUNT (BEAKER) (test wtla=361) 0.01 K/ L 0.04-0.36 BASOPHILS ABSOLUTE COUNT (BEAKER) (test zubq=245) 0.01 K/ L 0.01-0.08 IMMATURE GRANULOCYTES-RELATIVE PERCENT (BEAKER) (test fpml=7608) 0 % 0-1 URINALYSIS W/ [id number] 14:45:00* Test Item Value Reference Range Comments COLOR (BEAKER) (test xxvb=410) Yellow CLARITY (BEAKER) (test lpfo=465) Clear SPECIFIC GRAVITY UA (BEAKER) (test vlqb=395) 1.012 1.001-1.035 PH UA (BEAKER) (test lfcg=771) 5.5 5.0-8.0 PROTEIN UA (BEAKER) (test acny=136) Negative Negative GLUCOSE UA (BEAKER) (test wbig=242) Negative Negative KETONES UA (BEAKER) (test dtmy=739) Negative Negative BILIRUBIN UA (BEAKER) (test ecvh=850) Negative Negative BLOOD UA (BEAKER) (test gtbl=919) Negative Negative NITRITE UA (BEAKER) (test ilfz=511) Negative Negative LEUKOCYTE ESTERASE UA (BEAKER) (test mywq=533) Negative Negative UROBILINOGEN UA (BEAKER) (test amsk=878) 0.2 mg/dL 0.2-1.0 RBC UA (BEAKER) (test wfwy=361) < /HPF WBC UA (BEAKER) (test golp=088) 1 /HPF BACTERIA (BEAKER) (test fbbw=442) Rare MUCUS (BEAKER) (test qdxj=1333) Rare SQUAMOUS EPITHELIAL (BEAKER) (test xmtb=599) < /HPF CASTS (BEAKER) (test kour=8102) 1 /LPF SOURCE(BEAKER) (test nxia=5195) Urine, Clean Catch CLOSTRIDIUM DIFFICILE TOXIN [id number] 13:51:00* Test Item Value Reference Range Comments CLOSTRIDIUM DIFFICILE TOXIN, PCR (WENDYAKER) (test nlfv=6205) Not Detected Not Detected This qualitative real-time polymerase chain reaction assay detects the tcdB gene , encoded on the C.difficile pathogenicity locus (PaLoc). The product of tcdB, toxin B, is a cytotoxin essential for causing C.difficile-associated disease (CD AD) and is found in virtually all toxigenic C.difficile.This assay is performed for patients suspected of having either community-acquired or nosocomial CDAD. Accordingly, only symptomatic patients should be tested and formed stools will b e rejected unless ileus is present (i.e., specified when ordering). Patients ma y be colonized with toxigenic C.difficile strains not causing active disease; th erefore, clinical correlation is needed when deciding how to manage patients wit h a positive test result.The assay has not been validated as a test of cure as a mplifiable nucleic acid may persist after effective treatment; therefore, follow -up testing of a positive result is not recommended.CT, [id number] 06:26:00Reason for exam:->ABDOMINAL PAINWhat is the patient's sedation requirement?->No SedationFINAL REPORT CT, ABDOMEN \T\ PELVIS, WITHOUT IV CONTRAST INDICATION: Abdominal pain, unspecifiedABDOMINAL PAIN COMPARISON: February 16, 2013 TECHNIQUE: CT of the abdomen and pelvis WITHOUT intravenous contrast. DOSE REDUCTION: Dose modulation, iterative reconstruction, and/or weight-based adjustment of the mA/kV was utilized to reduce the radiation dose to as low as reasonably achievable. FINDINGS:NOTE: Absence of intravenous contrast decreases sensitivity for focal lesions and vascular pathology. Lower thorax: Unremarkable Liver: No parenchymal abnormality.Gallbladder and biliary tree: No ductal dilation or stones.Pancreas: No acute findings.Spleen: No acute findingsAdrenal Glands: No acute findings.Kidneys and ureters: Left pelviectasis. No obstructing stone.Bladder and reproductive organs: Unremarkable. Stomach and Duodenum: Small sliding hiatal hernia.Small and large intestine: Normal calibers. Distal colonic diverticular disease. No associated inflammatory signs. Fluid content throughout the small and large bowel. There is no pneumatosis.Appendix: The appendix is not identified. No pericecal inflammatory changes are present. Major vascular structures: Normal aortic caliber. Calcific atherosclerosis extending into the major branches.Peritoneum and retroperitoneum: No free air, fluid or adenopathy. Skeleton: No acute bony abnormality.Additional findings: None. IMPRESSION: Limited noncontrast evaluation revealing no bowel obstruction. Fluid content throughout the large and small bowel may reflect infectious/inflammatory enterocolitis. No pneumatos is. Signed: JR Gio, Gina MAHARAJepjohn Verified Date/Time: 09/11/2017 06 :26:10 Reading Location: [facility] C013Y CT Body Reading Room Electronically sig eugenie by: GINA SOTO on 09/11/2017 06:26 AM BASIC METABOLIC PANEL 2017-09-11 04:49:00* Test Item Value Reference Range Comments SODIUM (BEAKER) (test ssly=726) 141 meq/L 136-145 POTASSIUM (BEAKER) (test tfku=834) 3.6 meq/L 3.5-5.1 CHLORIDE (BEAKER) (test btsa=681) 106 meq/L 98-107 CO2 (BEAKER) (test jeyy=088) 24 meq/L 22-29 BLOOD UREA NITROGEN (BEAKER) (test qmur=030) 16 mg/dL 7-21 CREATININE (BEAKER) (test awag=831) 1.19 mg/dL 0.57-1.25 GLUCOSE RANDOM (BEAKER) (test rixt=732) 168 mg/dL 70-105 CALCIUM (BEAKER) (test zioz=558) 9.2 mg/dL 8.4-10.2 EGFR (BEAKER) (test etoc=8430) 53 mL/min/1.73 sq m ESTIMATED GFR IS NOT ACCURATE CREATININE CLEARANCE IN PREDICTING GLOMERULAR FILTRATION RATE. ESTIMATED GFR IS NOT APPLICABLE FOR DIALYSIS PATIENTS. [id number] 04:30:00* Test Item Value Reference Range Comments LIPASE (BEAKER) (test gdyz=750) 13 U/L 8-78 [id number] 04:30:00* Test Item Value Reference Range Comments AMYLASE (BEAKER) (test xdhf=511) 137 U/L 25-125 HEPATIC FUNCTION [id number] 04:30:00* Test Item Value Reference Range Comments TOTAL PROTEIN (BEAKER) (test lunx=315) 8.1 gm/dL 6.0-8.3 ALBUMIN (BEAKER) (test okjw=1336) 3.6 g/dL 3.5-5.0 BILIRUBIN TOTAL (BEAKER) (test ykct=331) 0.4 mg/dL 0.2-1.2 BILIRUBIN DIRECT (BEAKER) (test ntis=703) 0.2 mg/dL 0.1-0.5 ALKALINE PHOSPHATASE (BEAKER) (test aant=013) 94 U/L 40-150 AST (SGOT) (BEAKER) (test ngff=090) 17 U/L 5-34 ALT (SGPT) (BEAKER) (test ypes=248) 10 U/L 6-55 CBC W/PLT COUNT & AUTO [id number] 03:39:00* Test Item Value Reference Range Comments WHITE BLOOD CELL COUNT (BEAKER) (test owaq=413) 8.0 K/ L 3.5-10.5 RED BLOOD CELL COUNT (BEAKER) (test tlfl=033) 4.43 M/ L 3.93-5.22 HEMOGLOBIN (BEAKER) (test fgko=844) 11.4 GM/DL 11.2-15.7 HEMATOCRIT (BEAKER) (test adua=059) 38.1 % 34.1-44.9 MEAN CORPUSCULAR VOLUME (BEAKER) (test vdcl=712) 86.0 fL 79.4-94.8 MEAN CORPUSCULAR HEMOGLOBIN (BEAKER) (test ecjl=757) 25.7 pg 25.6-32.2 MEAN CORPUSCULAR HEMOGLOBIN CONC (BEAKER) (test eevn=259) 29.9 GM/DL 32.2-35.5 RED CELL DISTRIBUTION WIDTH (BEAKER) (test ssdh=895) 18.4 % 11.7-14.4 PLATELET COUNT (BEAKER) (test nrwd=360) 215 K/CU MM 150-450 MEAN PLATELET VOLUME (BEAKER) (test dmfw=935) 12.0 fL 9.4-12.3 NUCLEATED RED BLOOD CELLS (BEAKER) (test blag=641) 0 /100 WBC 0-0 NEUTROPHILS RELATIVE PERCENT (BEAKER) (test afin=159) 78 % LYMPHOCYTES RELATIVE PERCENT (BEAKER) (test fxle=014) 14 % MONOCYTES RELATIVE PERCENT (BEAKER) (test zwxm=181) 7 % EOSINOPHILS RELATIVE PERCENT (BEAKER) (test spoq=255) 1 % BASOPHILS RELATIVE PERCENT (BEAKER) (test pwjq=413) 0 % NEUTROPHILS ABSOLUTE COUNT (BEAKER) (test peya=734) 6.18 K/ L 1.56-6.13 LYMPHOCYTES ABSOLUTE COUNT (BEAKER) (test wvcm=921) 1.11 K/ L 1.18-3.74 MONOCYTES ABSOLUTE COUNT (BEAKER) (test rdii=669) 0.56 K/ L 0.24-0.36 EOSINOPHILS ABSOLUTE COUNT (BEAKER) (test rtno=866) 0.06 K/ L 0.04-0.36 BASOPHILS ABSOLUTE COUNT (BEAKER) (test vype=003) 0.01 K/ L 0.01-0.08 IMMATURE GRANULOCYTES-RELATIVE PERCENT (BEAKER) (test dceh=6228) 0 % 0-1 BLOOD [id number] 06:00:00* Test Item Value Reference Range Comments CULTURE (BEAKER) (test amio=9761) No growth in 5 days RAPID TROPONIN [id number] 13:16:00* Test Item Value Reference Range Comments RAPID TROPONIN I (BEAKER) (test uekv=1012) < ng/mL <0.05 URINALYSIS W/ [id number] 13:15:00* Test Item Value Reference Range Comments COLOR (BEAKER) (test ccqr=160) Light Yellow CLARITY (BEAKER) (test hser=511) Slightly Hazy SPECIFIC GRAVITY UA (BEAKER) (test xipf=976) 1.010 1.001-1.035 PH UA (BEAKER) (test jjkd=295) 8.0 5.0-8.0 PROTEIN UA (BEAKER) (test iuyv=510) Negative Negative GLUCOSE UA (BEAKER) (test qouj=190) Negative Negative KETONES UA (BEAKER) (test ppth=003) Negative Negative BILIRUBIN UA (BEAKER) (test pdpi=905) Negative Negative BLOOD UA (BEAKER) (test dluy=027) Negative Negative NITRITE UA (BEAKER) (test hkon=221) Negative Negative LEUKOCYTE ESTERASE UA (BEAKER) (test bkiq=912) Small Negative UROBILINOGEN UA (BEAKER) (test ccmc=050) 1.0 mg/dL 0.2-1.0 BACTERIA (BEAKER) (test bsgx=905) Many RBC UA-MANUAL (BEAKER) (test vdkb=8019) <5 /HPF WBC UA-MANUAL (BEAKER) (test irtn=2860) <5 /HPF SQUAMOUS EPITHELIAL MANUAL (BEAKER) (test qwii=1231) 20-50 /HPF SOURCE(BEAKER) (test tcsq=9362) COMPREHENSIVE METABOLIC [id number] 13:09:00* Test Item Value Reference Range Comments TOTAL PROTEIN (BEAKER) (test xesm=594) 8.7 gm/dL 6.0-8.5 ALBUMIN (BEAKER) (test rxdv=5466) 4.2 g/dL 3.5-5.0 ALKALINE PHOSPHATASE (BEAKER) (test dxtg=277) 106 U/L 30-115 BILIRUBIN TOTAL (BEAKER) (test wykf=593) 0.7 mg/dL 0.1-1.2 SODIUM (BEAKER) (test qfbi=828) 143 meq/L 135-148 POTASSIUM (BEAKER) (test ewoi=863) 4.1 meq/L 3.6-5.5 CHLORIDE (BEAKER) (test bgsr=434) 102 meq/L 98-106 CO2 (BEAKER) (test ydrr=087) 27 meq/L 24-32 BLOOD UREA NITROGEN (BEAKER) (test agft=092) 10 mg/dL 10-26 CREATININE (BEAKER) (test vdaa=802) 0.96 mg/dL 0.50-1.20 GLUCOSE RANDOM (BEAKER) (test kgay=967) 102 mg/dL 70-110 CALCIUM (BEAKER) (test cluv=912) 9.2 mg/dL 8.5-10.5 AST (SGOT) (BEAKER) (test oqfx=390) 26 U/L 5-40 ALT (SGPT) (BEAKER) (test svvb=841) 19 U/L 5-50 EGFR (BEAKER) (test hcmu=0764) 67 mL/min/1.73 sq m ESTIMATED GFR IS NOT ACCURATE CREATININE CLEARANCE IN PREDICTING GLOMERULAR FILTRATION RATE. ESTIMATED GFR IS NOT APPLICABLE FOR DIALYSIS PATIENTS. CBC W/PLT COUNT & AUTO [id number] 13:08:00* Test Item Value Reference Range Comments WHITE BLOOD CELL COUNT (BEAKER) (test myxq=854) 4.0 10e3/ L 4.0-10.0 RED BLOOD CELL COUNT (BEAKER) (test eebj=265) 4.34 10e6/ L 4.00-5.00 HEMOGLOBIN (BEAKER) (test yalk=902) 10.8 g/dL 12.0-15.0 HEMATOCRIT (BEAKER) (test krej=250) 34.1 % 36.0-45.0 MEAN CORPUSCULAR VOLUME (BEAKER) (test wusu=707) 78.4 fL 82.0-99.0 MEAN CORPUSCULAR HEMOGLOBIN (BEAKER) (test zfex=028) 24.8 pg 27.0-33.0 MEAN CORPUSCULAR HEMOGLOBIN CONC (BEAKER) (test peps=483) 31.6 g/dL 32.0-36.0 RED CELL DISTRIBUTION WIDTH (BEAKER) (test qwqw=977) 17.2 % 10.3-14.2 PLATELET COUNT (BEAKER) (test dioc=924) 226 10e3/ L 150-430 MEAN PLATELET VOLUME (BEAKER) (test bdoa=330) 9.1 fL 6.5-10.5 NEUTROPHILS RELATIVE PERCENT (BEAKER) (test hlup=626) 48 % LYMPHOCYTES RELATIVE PERCENT (BEAKER) (test iaau=491) 40 % MONOCYTES RELATIVE PERCENT (BEAKER) (test husn=066) 10 % EOSINOPHILS RELATIVE PERCENT (BEAKER) (test qonv=285) 2 % BASOPHILS RELATIVE PERCENT (BEAKER) (test jvqg=906) 1 % NEUTROPHILS ABSOLUTE COUNT (BEAKER) (test nqzp=491) 1.91 10e3/ L 1.80-8.00 LYMPHOCYTES ABSOLUTE COUNT (BEAKER) (test veen=494) 1.61 10e3/ L 1.48-4.50 MONOCYTES ABSOLUTE COUNT (BEAKER) (test yjhm=375) 0.38 10e3/ L 0.00-1.30 EOSINOPHILS ABSOLUTE COUNT (BEAKER) (test euma=830) 0.07 10e3/ L 0.00-0.50 BASOPHILS ABSOLUTE COUNT (BEAKER) (test ucmx=788) 0.02 10e3/ L 0.00-0.20 [id number] 13:08:00* Test Item Value Reference Range Comments LIPASE (BEAKER) (test ihii=415) 42 U/L 40-240 LACTIC ACID, VENOUS, WHOLE [id number] 13:05:00* Test Item Value Reference Range Comments LACTATE BLOOD VENOUS (2) (ANAIS) (test blew=9619) 0.9 mmol/L 0.5-2.2 Effective 02/06/2016: Units/Reference Range ChangeNew: 0.5-2.2 mmol/L Previous: 5 -18 mg/dL
--- NOTE | 2018-09-02 08:22 | Operative Report ---
DATE OF PROCEDURE: September 02, 2018 PREOPERATIVE DIAGNOSES 1. Right carpal tunnel syndrome. 2. Flexor tenosynovitis, right wrist. POSTOPERATIVE DIAGNOSES 1. Right carpal tunnel syndrome. 2. Flexor tenosynovitis, right wrist. PROCEDURES 1. Right open carpal tunnel release. 2. Flexor tenosynovectomy, right wrist. ANESTHESIA: General. HISTORY: The patient is an 83-year-old female with EMG-proven right carpal tunnel syndrome. Risks, benefits and alternatives of treatment were discussed with the patient. The patient is prepared to undergo the procedure as outlined. PROCEDURE: The patient was brought to the operating theater. After the induction of adequate general inhalation anesthesia, the patient was prepped and draped in the supine position. A time out was performed by the entire operating room team. A 2.5-cm incision was marked out in the intrathenar space. The right upper extremity was exsanguinated and a tourniquet was inflated to a pressure of 250 mmHg. The incision was made through the skin and subcutaneous tissues and all venous tributaries were controlled with bipolar cautery. The incision was deepened through the palmar fascia until the transverse carpal ligament was identified. The ligament was sharply sectioned, taking care to protect and preserve the median nerve underlying it. After the complete width of the ligament had been transected, the distal volar forearm fascia was divided under direct view. Proliferative flexor tenosynovium was noticed to encompass the median nerve and this was radically excised. After performing this maneuver, the nerve was noted to lie adequately decompressed. The wound was copiously irrigated with bacteriostatic saline, closed with 5-0 nylon in an interrupted horizontal mattress fashion. A Marcaine field block was performed at the operative site. Tourniquet was deflated. All of the fingers pinked up nicely and a sterile bulking conforming bandage was applied to the hand and the wrist. A fiberglass splint was fashioned to maintain the wrist in a modest amount of extension. This was held in place with a loosely wrapped Aaron wrap. The patient tolerated the procedure well and was brought to the recovery room in satisfactory condition and discharged with a postoperative instruction sheet as well as a followup appointment. Job#: [id number]
[2018-09-02 08:30] VITALS: BP 174/83
== END | disposition home or self-care (01) ==
LOC: OR 05:35
PROVIDERS: ATTEND Plastic Surgery
DX: G56.01 Carpal tunnel syndrome, right upper limb (principal); M65.841 Other synovitis and tenosynovitis, right hand; I10 Essential (primary) hypertension; E03.9 Hypothyroidism, unspecified; Z88.5 Allergy status to narcotic agent; Z91.041 Radiographic dye allergy status; Z01.810 Encounter for preprocedural cardiovascular examination; Z01.812 Encounter for preprocedural laboratory examination; Z01.818 Encounter for other preprocedural examination
CPT/HCPCS: 36415; 64721; 71046; 85025; 93005; J0690; J1100; J2001; J2405; J2704